=== PATIENT | male | born 2000 | race Caucasian/White ===

== ENCOUNTER 2018-07-30 16:19 | Emergency (ER) | payer SELFPAY ==
[~2018-07-30] VITALS: Ht 180.3 cm; Wt 58.3 kg
[2018-07-30 16:23] VITALS: Ht 180.3 cm; Wt 58.3 kg
[2018-07-30 18:08] VITALS: BP 140/91
== END 2018-07-30 18:08 | disposition home or self-care (01) ==
LOC: ED 16:19
DX: S92.811A Other fracture of right foot, initial encounter for closed fracture (principal); W17.89XA Other fall from one level to another, initial encounter; Y93.89 Activity, other specified; Y92.89 Other specified places as the place of occurrence of the external cause; Y99.8 Other external cause status
CPT/HCPCS: Q0092